=== PATIENT | male | born 1965 | race Caucasian/White ===

== ENCOUNTER 2016-11-14 20:25 | Emergency (ER) | payer OTHER ==
[~2016-11-14] VITALS: Ht 165.1 cm; Wt 78.9 kg
[2016-11-14 21:24] LABS: ABSOLUTE BASOPHIL COUNT 0 /CUMM (0.0-0.2); ABSOLUTE EOSINOPHIL COUNT 0 /CUMM (0.0-0.7); ABSOLUTE GRANULOCYTE CT 20.3 /CUMM (1.4-6.5); ABSOLUTE LYMPH COUNT 0.8 /CUMM (1.2-3.4); ABSOLUTE MONOCYTE COUNT 0.9 /CUMM (0.10-0.60); BASOPHIL % 0.2 % (0.0-2.0); EOSINOPHIL % 0 % (0-5); HEMATOCRIT 46.3 % (42-52); MEAN CORPUSCULAR HGB 30.9 PG (27.0-31.0); MEAN CORPUSCULAR HGB CONC 33.1 G/DL (33.0-37.0); MEAN CORPUSCULAR VOLUME 93.3 FL (80.0-94.0); MEAN PLATELET VOLUME 7.9 FL (7.4-10.4); PLATELET COUNT 291 /CUMM (130-400); RBC DISTRIBUTION WIDTH 14.1 % (11.5-14.5); RED BLOOD CELL CT 4.96 /CUMM (4.70-6.10); WHITE BLOOD CELL COUNT 22.1 /CUMM (4.8-10.8)
[2016-11-14 21:26] LABS: GRANULOCYTE % 91.9 % (42.2-75.2)
--- NOTE | 2016-11-14 21:58 | ED CARDIAC/CP/PALPITATIONS ---
History of Present Illness General Chief Complaint: Palpitations Stated Complaint: PT FEELS HEART RACING Source: patient, family, old records Exam Limitations: no limitations Vital Signs & Intake/Output Vital Signs & Intake/Output Vital Signs Date Time Temp Pulse Resp B/P Pulse O2 O2 Flow FiO2 Ox Delivery Rate 11/14 2310 97.8 119 18 138/87 98 Room Air 11/14 2205 97 Room Air 11/14 2044 98.2 130 18 133/89 96 Room Air ED Intake and Output 11/15 0000 11/14 1200 Intake Total Output Total Balance Patient 174 lb Weight Allergies Coded Allergies: MDX - No Known Drug Allergies - Nkd (NO KNOWN DRUG ALLERGIES - NKDA) (09/04/13) Reconcile Medications Amoxicillin/Potassium Clav (Augmentin 875-125 Tablet) 875 MG-125 MG TABLET 1 TAB PO BID PNEUMONIA Triage Note: PT STATES THAT HE HAD R ROTATOR CUFF SURGERY TODAY AND FOR THE PAST 3 HOURS HE FEELS LIKE HIS HEART IS RACING, HR 120-130'S AT THIS TIME, DENIES CP/SOB, DENIES PAIN IN R ARM, TAKING PERCOCET FOR THE PAIN. Triage Nurses Notes Reviewed? yes HPI: Patient had right rotator cuff surgery today. Patient was at home when all of a sudden his heart began RACING AND HE BECAME A LITTLE SHORT OF BREATH. PATIENT DENIES ANY CHEST PAIN. SHORTNESS OF BREATH RESOLVED BUT HE STILL FEELS HIS HEART IS RACING; THEN FOR EVALUATION. PATIENT HAS NO OTHER COMPLAINTS. Past History Travel History Traveled to [place] past 21 day No Medical History Any Pertinent Medical History? see below for history Neurological: NONE EENT: NONE Cardiovascular: hypertension, hyperlipidemia Respiratory: NONE Gastrointestinal: NONE Hepatic: NONE Renal: NONE Musculoskeletal: NONE Psychiatric: NONE Endocrine: diabetes Blood Disorders: NONE Cancer(s): NONE Surgical History Surgical History: non-contributory Psychosocial History What is your primary language Welsh Tobacco Use: Never used ETOH Use: denies use Illicit Drug Use: denies illicit drug use Family History Hx Contributory? No Review of Systems Review of Systems Constitutional: Reports: no symptoms. EENTM: Reports: no symptoms. Respiratory: Reports: see HPI, short of breath. Cardiovascular: Reports: see HPI, palpitations. GI: Reports: no symptoms. Genitourinary: Reports: no symptoms. Musculoskeletal: Reports: no symptoms. Skin: Reports: no symptoms. Neurological/Psychological: Reports: no symptoms. Hematologic/Endocrine: Reports: no symptoms. Immunologic/Allergic: Reports: no symptoms. All Other Systems: Reviewed and Negative Physical Exam Physical Exam General Appearance: well developed/nourished, alert, awake, anxious, mild distress Head: atraumatic, normal appearance Eyes: Bilateral: PERRL, EOMI. Ears, Nose, Throat: normal pharynx, normal ENT inspection, hearing grossly normal Neck: normal inspection, supple, full range of motion Respiratory: normal breath sounds, chest non-tender, no respiratory distress, lungs clear Cardiovascular: normal peripheral pulses, tachycardia Gastrointestinal: normal bowel sounds, soft, non-tender Back: normal inspection, normal range of motion Extremities: normal inspection, normal capillary refill, normal range of motion, no edema Neurologic/Psych: no motor/sensory deficits, awake, alert, oriented x 3, normal gait, normal mood/affect Skin: intact, normal color, warm/dry Lymphatic: no anterior cervical tulio Core Measures ACS in differential dx? No Severe Sepsis Present: No Septic Shock Present: No Progress Differential Diagnosis: AMI, CHF/pulm edema, hyperthyroid, musculoskeletal pain, pneumonia, pneumothorax, PSVT, pulmonary embolism Plan of Care: Orders Procedure Date/time Status TROPONIN LEVEL 11/14 2046 Complete COMPREHENSIVE METABOLIC PANEL 11/14 2046 Complete CBC WITHOUT DIFFERENTIAL 11/14 2046 Complete EKG 11/14 2025 Active Laboratory Tests 11/14/162109: Anion Gap 19 H, Estimated GFR > 60, BUN/Creatinine Ratio 30.0 H, Glucose 295 H, Calcium 10.0, Total Bilirubin 0.6, AST 24, ALT 44, Alkaline Phosphatase 73, Troponin I < 0.01, Total Protein 7.0, Albumin 4.8, Globulin 2.2, Albumin/ Globulin Ratio 2.2, CBC w Diff MAN DIFF ORDERED, RBC 4.96, MCV 93.3, MCH 30.9, RDW 14.1, MPV 7.9, Gran % 91.9 H, Lymphocytes % 3.8 L, Monocytes % 4.1, Eosinophils % 0, Basophils % 0.2, Absolute Granulocytes 20.3 H, Segmented Neutrophils 92 H, Band Neutrophils 1, Absolute Lymphocytes 0.8 L, Lymphocytes 3 L, Monocytes 4, Absolute Monocytes 0.9 H, Absolute Eosinophils 0, Absolute Basophils 0, Platelet Estimate VERIFIED BY SMEAR, Normocytic RBCs VERIFIED, Normochromic RBCs VERIFIED, PUBS MCHC 33.1, Fld Total RBCs Counted 100 Diagnostic Imaging: Viewed by Me: CT Scan. Discussed w/RAD: CT Scan. Radiology Impression: PATIENT: MITZI HURST PRESENT AGE: 51 PATIENT ACCOUNT NO: [id number] : 64 LOCATION: [facility] ORDERING PHYSICIAN: URSULA COLIN MD SERVICE DATE: 11/14/16 EXAM TYPE: CAT - CTA CHEST-PULMONARY EMBOLISM EXAMINATION: CT ANGIOGRAM OF THE CHEST WITH AND WITHOUT CONTRAST (CT PULMONARY ANGIOGRAM FOR PE) CLINICAL INFORMATION: RIGHT SHOULDER SURGERY TODAY, NOW TACHYCARDIC
COMPARISON: None TECHNIQUE: Prior to contrast administration, noncontrast localization images were obtained. Subsequently, multidetector volumetric imaging was performed from the thoracic inlet to below the diaphragms following the administration of 95 mL Optiray 350 intravenous contrast. No contrast reaction reported. Sagittal, coronal, and MIP oblique sagittal reformatted images were obtained on the CT workstation, uploaded to PACS, and reviewed. Total exam dose-length product 576.46 mGy-cm. FINDINGS: QUALITY OF STUDY/CONTRAST BOLUS: Satisfactory PULMONARY ARTERIES: No central or segmental pulmonary emboli. THORACIC AORTA: No aneurysm or dissection. LUNG: Asymmetric elevation of right diaphragm compared to left. Small parenchymal infiltrate and/or scarring atelectasis at the medial right upper lobe and dependent medial right lower lobe. PLEURA: No pleural effusion or pneumothorax. MEDIASTINUM: Normal heart size. No pericardial effusion. No hilar or mediastinal lymphadenopathy. No evidence of septal bowing or right heart strain. CHEST WALL/AXILLA: Edema fluid air collections over the area the right shoulder consistent with history of surgery. OSSEOUS STRUCTURES: No acute or suspicious osseous abnormality. UPPER ABDOMEN: Parapelvic cysts of kidneys. Adrenal glands are normal. Visualized portions of liver, spleen and the pancreas are unremarkable. IMPRESSION: 1. No evidence of pulmonary embolism. 2. Small region of Right lung infiltrate/atelectasis. 3. Postsurgical changes soft tissues right shoulder. VTE: Negative for pulmonary embolism. DICTATED BY: DEIDRE ESCOBAR MD DATE/TIME DICTATED:11/14/162222 SHOULDER BONER:AROLDO DATE/ TIME TRANSCRIBED:11/14/162222 CONFIDENTIAL, DO NOT COPY WITHOUT APPROPRIATE AUTHORIZATION. <Electronically signed in Other Vendor System> SIGNED BY: DEIDRE ESCOBAR MD 11/14/16 0209 Initial ED EKG: SINUS TACHYCARDIA AT 119. nO st-t CHANGES. Comments: Patient does not have a fever nor is he coughing. Patient advised of CAT scan and lab results. Questions have been answered. Patient will be given a prescription for antibiotics but he will not fill it unless he develops a fever or productive cough. Departure Departure Disposition: HOME OR SELF CARE Condition: Stable Clinical Impression Primary Impression: Palpitations Referrals: BETTE GAMEZ,APRIL Mandujano (PCP/Family) Additional Instructions: Return if symptoms worsen or for any concerns. If he develops a fever or a productive cough then fill the antibiotics and take them as prescribed. Departure Forms: Customer Survey General Discharge Information Prescriptions: Current Visit Scripts Amoxicillin/Potassium Clav (Augmentin 875-125 Tablet) 1 TAB PO BID #20 TAB Critical Care Note Critical Care Note Critical Care Time: non-applicable
--- NOTE | 2016-11-14 22:41 | CT SCAN REPORT ---
EXAMINATION: CT ANGIOGRAM OF THE CHEST WITH AND WITHOUT CONTRAST (CT PULMONARY ANGIOGRAM FOR PE) CLINICAL INFORMATION: RIGHT SHOULDER SURGERY TODAY, NOW TACHYCARDIC
COMPARISON: None TECHNIQUE: Prior to contrast administration, noncontrast localization images were obtained. Subsequently, multidetector volumetric imaging was performed from the thoracic inlet to below the diaphragms following the administration of 95 mL Optiray 350 intravenous contrast. No contrast reaction reported. Sagittal, coronal, and MIP oblique sagittal reformatted images were obtained on the CT workstation, uploaded to PACS, and reviewed. Total exam dose-length product 576.46 mGy-cm. FINDINGS: QUALITY OF STUDY/CONTRAST BOLUS: Satisfactory PULMONARY ARTERIES: No central or segmental pulmonary emboli. THORACIC AORTA: No aneurysm or dissection. LUNG: Asymmetric elevation of right diaphragm compared to left. Small parenchymal infiltrate and/or scarring atelectasis at the medial right upper lobe and dependent medial right lower lobe. PLEURA: No pleural effusion or pneumothorax. MEDIASTINUM: Normal heart size. No pericardial effusion. No hilar or mediastinal lymphadenopathy. No evidence of septal bowing or right heart strain. CHEST WALL/AXILLA: Edema fluid air collections over the area the right shoulder consistent with history of surgery. OSSEOUS STRUCTURES: No acute or suspicious osseous abnormality. UPPER ABDOMEN: Parapelvic cysts of kidneys. Adrenal glands are normal. Visualized portions of liver, spleen and the pancreas are unremarkable. IMPRESSION: 1. No evidence of pulmonary embolism. 2. Small region of Right lung infiltrate/atelectasis. 3. Postsurgical changes soft tissues right shoulder. VTE: Negative for pulmonary embolism.
[2016-11-14] MEDS ORDERED: AUGMENTIN 875-1 EACH PO (23:06)
[2016-11-14 23:10] VITALS: BP 138/87
== END 2016-11-14 23:22 ==
LOC: ERH 20:25
PROVIDERS: Emergency Medicine
DX: R00.2 Palpitations (principal)
CPT/HCPCS: 93005; 93010